=== PATIENT | male | born 1980 | race African-American/Black ===

== ENCOUNTER 2018-02-15 17:55 | Emergency (ER) | payer OTHER ==
[~2018-02-15] VITALS: Ht 185.4 cm; Wt 117.9 kg
[2018-02-15] MEDS ORDERED: LISINOPRIL2.5 MG PO (18:01)
[2018-02-15 18:22] LABS: URINE BILIRUBIN NEGATIVE (Negative); URINE BLOOD NEGATIVE (Negative); URINE CLARITY CLEAR; URINE COLOR YELLOW; URINE GLUCOSE-RANDOM NEGATIVE (Negative); URINE KETONES NEGATIVE (Negative); URINE LEUKOCYTES-REFLEX 1+ (Negative); URINE NITRITE-REFLEX NEGATIVE (Negative); URINE PROTEIN NEGATIVE (Negative); URINE SPECIFIC GRAVITY <= 1.005 (1.005-1.030); URINE UROBILINOGEN 0.2 E.U./dl (0.2-1.0)
[2018-02-15 18:34] LABS: BACTERIA-REFLEX None Seen /HPF (None Seen); CASTS None Seen /LPF (None Seen); CRYSTALS None Seen /LPF (None Seen); SQUAMOUS 4-10 Moderate /LPF (0-3); URINE RBC 0-2 Rare /HPF (0-2); URINE WBC-REFLEX 0-5 Rare /HPF (0-5)
[2018-02-15 18:45] LABS: ABSOLUTE BASOPHILS 0.1 thou/uL (0.0-0.2); ABSOLUTE LYMPHOCYTES 2.2 thou/uL (0.8-5.3); ABSOLUTE MONOCYTES 0.6 thou/uL (0.0-1.2); ABSOLUTE NEUTROPHILS 4.2 thou/uL (1.6-8.1); EOSINOPHILS 0.7 %; HEMOGLOBIN 15.2 gm/dL (14.0-18.0); LYMPHOCYTES 30.5 %; MCH 28.3 pg (26.0-34.0); MCHC 33.1 g/dL (28.0-37.0); MCV 85.5 fL (80.0-100.0); MONOCYTES 8.2 %; MPV 6.9 fl. (7.2-11.1); NUCLEATED RBCS 0 /100WBC; PLATELET COUNT* 360 thou/uL (150-400); POLYS 59.6 %; RBC 5.38 mil/uL (4.50-6.00); RDW-CV 13.8 % (10.5-14.5); WBC 7.1 thou/uL (4.0-11.0)
[2018-02-15 18:52] LABS: CALCIUM 8.9 mg/dL (8.5-10.1); POTASSIUM 3.7 mmol/L (3.5-5.1)
[2018-02-15 19:01] LABS: ALBUMIN 4.1 g/dL (3.4-5.0); TOTAL BILIRUBIN 0.8 mg/dL (<0.1-1.0); TOTAL PROTEIN 7.5 g/dL (6.4-8.2)
[2018-02-15 19:43] VITALS: BP 134/77
== END 2018-02-15 19:43 | disposition home or self-care (01) ==
LOC: M.ERS 17:55
PROVIDERS: Family Medicine
DX: R11.2 Nausea with vomiting, unspecified (principal); I10 Essential (primary) hypertension

== ENCOUNTER 2018-03-22 18:14 | Emergency (ER) | payer OTHER ==
[~2018-03-22] VITALS: Ht 185.4 cm; Wt 120.2 kg
[~2018-03-22 18:14] MED LIST: LISINOPRIL2.5 MG PO
[2018-03-22 19:03] LABS: URINE BILIRUBIN NEGATIVE (Negative); URINE BLOOD NEGATIVE (Negative); URINE CLARITY CLEAR; URINE COLOR YELLOW; URINE GLUCOSE-RANDOM NEGATIVE (Negative); URINE KETONES NEGATIVE (Negative); URINE LEUKOCYTES-REFLEX NEGATIVE (Negative); URINE NITRITE-REFLEX NEGATIVE (Negative); URINE PROTEIN NEGATIVE (Negative); URINE SPECIFIC GRAVITY <= 1.005 (1.005-1.030); URINE UROBILINOGEN 0.2 E.U./dl (0.2-1.0)
[2018-03-22] MEDS ORDERED: ZOFRAN4 MG PO (19:06)
[2018-03-22 19:25] VITALS: BP 127/79
== END 2018-03-22 19:25 | disposition home or self-care (01) ==
LOC: M.ERS 18:14
PROVIDERS: Nurse Practitioner Family
DX: R11.2 Nausea with vomiting, unspecified (principal); I10 Essential (primary) hypertension